=== PATIENT | female | born 1960 | race Caucasian/White ===

== ENCOUNTER → 2023-06-01 | Outpatient (CLI) | payer OTHER ==
--- NOTE | 2023-06-03 07:10 | BD ---
EXAMINATION TYPE: Axial Bone Density DATE OF EXAM: 06/01/2023 CLINICAL HISTORY: 63 years old Female. ICD-10 CODE: Z78.0 SCREENING Height: 57.5 in Weight: 153 lbs FRAX RISK QUESTIONS: Secondary Osteoporosis: . Menopause before 45: partial hysterectomy age 39 Current Tobacco Use: yes RISK FACTORS HISTORY OF: Active: yes Postmenopausal woman: partial hysterectomy age 39 MEDICATIONS: Additional Medications: vit d, anxiety meds, blood pressure meds, cholesterol meds, zyrtec EXAM MEASUREMENTS: Bone mineral densitometry was performed using the [employer] System. Bone mineral density as measured about the Lumbar spine is: ----- L1-L4(G/cm2): 1.073 T Score Values are as follows: ----- L1: -2.1 ----- L2: -1.4 ----- L3: -1.5 ----- L4: -1.2 ----- L1-L4: -0.9 Z Score Values are as follows: ----- L1: -0.9 ----- L2: -0.1 ----- L3: -0.3 ----- L4: 2.4 ----- L1-L4: 0.3 Bone mineral density baseline Bone mineral density about the R hip (g/cm2): 0.898 Bone mineral density about the L hip (g/cm2): 0.943 T Score values are as follows: -----R Neck: -1.2 -----L Neck: -1.4 -----R Total: -0.9 -----L Total: -0.5 Z Score values are as follows: -----R Neck: 0.0 -----L Neck: -0.2 -----R Total: 0.1 -----L Total: 0.4 Bone mineral density baseline FRAX%s: The graph provided illustrates a 7.8% chance for a major osteoporotic fx and a 1.1% chance fo r the hips probability for fx in 10 years time. IMPRESSION: Osteopenia (T Score between -2.5 and -1). There is slightly increased risk of fracture and the patient may be considered for treatment. Re-Screen 2-5 years. NOTE: T-SCORE=SD OF THE YOUNG ADULT MEAN.
--- NOTE | 2023-06-04 09:24 | MM ---
Reason for Exam: Screening (asymptomatic). Last mammogram was performed 1 year(s) and 6 month(s) ago. Patient History: Menarche at age 12. First Full-Term at age 29. Hysterectomy at age 38. Postmenopausal. Risk Values: Monisha 5 year model risk: 1.9%. NCI Lifetime model risk: 8.4%. Prior Study Comparison: 05/19/2003 Bilateral Screening Mammogram, [facility]. 06/21/2004 Bilateral Screening Mammogram, [facility]. 06/27/2004 Left Special View Mammogram, [facility]. 12/23/2021 Bilateral Screening Mammogram, [facility]. Tissue Density: There are scattered fibroglandular densities. Findings: Analyzed By CAD. There is no suspicious group of microcalcifications or new suspicious mass in either breast. Overall Assessment: Negative, BI-RAD 1 Management: Screening Mammogram of both breasts in [address] [facility] will attempt to contact patient to return for supplemental views and ultrasound if indicated. Patient should continue monthly self-breast exams. A clinical breast exam by your physician is recommended on an annual basis. This exam should not preclude additional follow-up of suspicious palpable abnormalities. Note on Monisha scores and lifetime risk: 1. A Monisha score greater than 3% is considered moderate risk. If this is the case, consider specialist referral to assess eligibility for a risk reducing agent. 2. If overall lifetime risk for the development of breast cancer is 20% or higher, the patient may qualify for future screening with alternating mammogram and breast MRI. Electronically signed and approved by: Ahsan Rice DO
== END | disposition home or self-care (01) ==
LOC: RADMAMWWP 14:15
PROVIDERS: ATTEND Family Medicine
DX: Z12.31 Encounter for screening mammogram for malignant neoplasm of breast (principal); M85.89 Other specified disorders of bone density and structure, multiple sites; Z78.0 Asymptomatic menopausal state; F17.200 Nicotine dependence, unspecified, uncomplicated; Z90.711 Acquired absence of uterus with remaining cervical stump
CPT/HCPCS: 77067; 77080

== ENCOUNTER → 2024-06-14 | Outpatient (CLI) | payer OTHER ==
--- NOTE | 2024-06-20 08:30 | MM ---
Reason for Exam: Screening (asymptomatic). Last screening mammogram was performed 12 month(s) ago. Patient History: Menarche at age 12. First Full-Term at age 29. Hysterectomy at age 38. Postmenopausal. Patient has history of breast feeding. Risk Values: Monisha 5 year model risk: 1.9%. NCI Lifetime model risk: 8.1%. Prior Study Comparison: 06/21/2004 Bilateral Screening Mammogram, [facility]. 06/27/2004 Left Special View Mammogram, [facility]. 12/23/2021 Bilateral Screening Mammogram, [facility]. 06/01/2023 Bilateral MG screening mammo w CAD, [facility]. Tissue Density: The breasts are heterogeneously dense, which may obscure small masses. Findings: Analyzed By CAD. There is no suspicious group of microcalcifications or new suspicious mass in either breast. Overall Assessment: Negative, BI-RAD 1 Management: Screening Mammogram of both breasts in 1 year. . Patient should continue monthly self-breast exams. A clinical breast exam by your physician is recommended on an annual basis. This exam should not preclude additional follow-up of suspicious palpable abnormalities. Note on Monisha scores and lifetime risk: 1. A Monisha score greater than 3% is considered moderate risk. If this is the case, consider specialist referral to assess eligibility for a risk reducing agent. 2. If overall lifetime risk for the development of breast cancer is 20% or higher, the patient may qualify for future screening with alternating mammogram and breast MRI. Electronically signed and approved by: Nikita Zurita M.D. Radiologis
== END | disposition home or self-care (01) ==
LOC: RADMAMWWP 08:11
PROVIDERS: ATTEND Family Medicine
DX: Z12.31 Encounter for screening mammogram for malignant neoplasm of breast (principal); R92.333 Mammographic heterogeneous density, bilateral breasts; Z78.0 Asymptomatic menopausal state
CPT/HCPCS: 77063; 77067

== ENCOUNTER → 2024-09-22 | Outpatient (CLI) | payer OTHER ==
--- NOTE | 2024-09-22 16:38 | US ---
EXAMINATION TYPE: US thyroid st tissue head/neck DATE OF EXAM: 09/22/2024 COMPARISON: NONE CLINICAL INDICATION: Female, 64 years old with history of E21.0 PRIMARY HYPERPARATHYROIDISM; Scanned patient's neck parathyroid area: appears wnl Mild heterogeneity of the thyroid tissue. Could not exclude a subcentimeter nodule in the left lobe. IMPRESSION: Limited scanning for assessment for parathyroid nodule demonstrates NO sonographic evide nce of Parathyroid adenoma. [facility], Workstation: [id number], 09/22/2024 4:36 PM
== END | disposition home or self-care (01) ==
LOC: RADUSWWP 16:02
PROVIDERS: ATTEND Internal Medicine Endocrinology, Diabetes & Metabolism
DX: E21.0 Primary hyperparathyroidism (principal)
CPT/HCPCS: 76536